=== PATIENT | female | born 1945 | race Caucasian/White ===

== ENCOUNTER → 2023-12-28 14:55 | Outpatient (REF) | payer OTHER, SELFPAY | LOC: PAVMRI 14:55 | PROVIDERS: ATTENDING PHYSICIAN Specialist; FAMILY PHYSICIAN Family Medicine | DX: M54.16 Radiculopathy, lumbar region (principal) | CPT/HCPCS: 72148 ==

== ENCOUNTER 2024-05-18 12:31 | Emergency (ER) | payer OTHER, SELFPAY ==
[2024-05-18 12:32] VITALS: BP 148/75
--- NOTE | 2024-05-18 14:07 | ED.GENMED ---
History of Present Illness
General
Chief Complaint: Fall
Source: patient
Exam Limitations: none
Time Seen by Provider: 05/18/24 13:41
Nursing documentation reviewed up to this point in time: agreed with
History of Present Illness
History of Present Illness:
Patient is a 79-year-old female who presents to the ER for evaluation. She reports that she walking her dog May 06 and fell landing on her right ribs on grass. She denies hitting her head. She is on Coumadin. She did not have a medical
evaluation after injury. She has some right rib pain however last night her pain worsened. She complains of extreme pain to the right ribs worse with movement taking a deep breath. This worsened last night when trying to remove her bra. She
denies any abdominal pain nausea vomiting. Denies any new back pain. She reports is chronic back pain. Denies any hematuria. Her INR on Thursday was 3.1.
Past History
Past History
ED Past Medical History: Arrthythmia, Fibromyalgia, GERD and HTN
ED Past Surgical History: Appendectomy, Cholecystectomy, Gynecological (Hysterectomy), Orthopedic and Other (Splenectomy)
Patient has exhibited threatening behavior?: No
PSI?: No
Social History
Tobacco: Non-smoker
Alcohol: None
Drug: None
Review of Systems
Review of Systems
Allergies reviewed?: Yes
All Other Systems: ROS reviewed and negative except as documented in HPI and ROS
Constitutional: Reports no symptoms; Denies fever, fatigue or chills
Respiratory: Reports other (right anterior rib pain ); Denies trouble breathing
Cardiac: Reports no symptoms
ABD/GI: Reports no symptoms; Denies abdominal pain, nausea or vomiting
Musculoskeletal: Reports other (chronic back pain denies new pain from fall ); Denies neck pain
Skin: Reports no symptoms
Neurological: Denies dizzy or headache
Endocrine: Reports no symptoms
Psychiatric: Reports no symptoms
Phy Exam
General Physical Exam
General Presentation: no apparent distress
General age: appears stated age
General Skin: warm and dry
General Habitus: normal
General Mental: alert
General Hydration: appears well hydrated
Eye Exam
Eye Exam: PERRL
Eye Exam General: PERRL: bilateral and EOM intact: bilateral
Pupil Exam: Bilateral: round and reactive
Cardiovascular Exam
Cardiovascular Exam: regular rate/rhythm, no murmur and normal peripheral pulses
Pulmonary Exam
Pulmonary Exam: lungs clear, no respiratory distress and other (Normal inspection to right anterior ribs tender throughout the anterior rib no crepitus ecchymosis or abrasion; no crepitus )
Gastrointestinal Exam
Gastrointestinal Exam: non tender, soft and other (no ecchymosis to abdomen non tender )
Neurological Exam
Neurological Exam: alert and oriented x3
Musculoskeletal Exam
Musculoskeletal Exam: full ROM
Skin Exam
Skin Exam: normal color and warm/dry
Psychiatric Exam
Psychiatric Exam: normal mood/affect
Course
Orders/Labs/Results
Orders:
Orders
05/18/24 12:40
Ribs, Right 3 View W/PA Chest [CR Ribs-right 3 Vw W/pa Chest*] Urgent
Comment:
Reason For Exam: pain
05/18/24 14:03
Cardiac Monitoring- Treatment ONCE
05/18/24 14:05
CT Chest With Iv Contrast Urgent
Comment:
Reason For Exam: trauma right sided rib pain
0.9% Sodium Chloride 500 ml [Nss] 500 ml IV BOLUS
05/18/24 14:42
Complete Blood Count/With Diff Urgent
Comprehensive Metabolic Panel Urgent
PT/INR [Prothrombin Time] Urgent
Abnormal Lab Results
05/18/24
14:42
WBC 11.4 H 10^3/uL
(4.8-10.8)
RBC 3.81 L 10^6/uL
(4.20-5.40)
Hct 35.2 L %
(37.0-47.0)
MCH 31.8 H pg
(27.0-31.0)
RDW 14.6 H %
(11.5-14.5)
Plt Count 661 H 10^3/uL
(130-400)
Absolute Neuts (auto) 8.9 H 10^3/uL
(1.4-6.5)
Absolute Monos (auto) 0.7 H 10^3/uL
(0.1-0.6)
Neutrophils % 78.5 H %
(42.2-75.2)
Lymphocytes % 13.0 L %
(20.5-51.1)
PT 30.0 H Sec
(11.4-14.6)
Glucose 109 H mg/dl
(70-99)
Calcium 10.4 H mg/dl
(8.4-10.2)
AST 39 H U/L
(14-36)
05/18/24 14:42
05/18/24 14:42
Vital Signs
Initial and Last Documented VS:
Initial Vital Signs
Temp Pulse Resp BP Pulse Ox
98 F 69 16 148/75 95
05/18/24 12:32 05/18/24 12:32 05/18/24 12:32 05/18/24 12:32 05/18/24 12:32
Last Documented Vital Signs
Temp Pulse Resp BP Pulse Ox
98 F 60 18 139/74 97
05/18/24 12:32 05/18/24 16:35 05/18/24 16:35 05/18/24 16:35 05/18/24 16:35
MDM/Problems Addressed
Differential Diagnosis Includes:
Not limited to rib fracture contusion
MDM/Problems Addressed:
Patient is a 79-year-old female who complains of right rib pain. She fell May 06 she is on Coumadin but denies hitting her head. Pain increased last night. X-ray did not show any acute findings however due to tenderness CAT scan was done and
does show 2 nondisplaced fractures of right sixth and seventh ribs.
White count minimally elevated however no complaints of infectious symptoms stable hemoglobin and normal kidney function.
She has no abdominal tenderness is no acute distress not hypoxic no complaints of shortness
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 Discussed deep breathing exercises.
Chronic conditions affecting care:
Chronic pain on narcotics at home on Coumadin denies any head injury was from 05/06/2024 no abdominal tenderness
*Radiology
Radiology exam reviewed: radiology read reviewed
*Pulse Oximetry
Patient hypoxic: no
*Critical Care Note
Total Time (30-74mins, 75-104mins- exclusive of procedures): Not Applicable
ED Attending Note
-
Portions of this chart may have been created with voice recognition software.� Occasional wrong word or��sound alike� substitutions may have occurred due to the inherent limitations of voice recognition software.
Discharge Plan
Departure
Patient Disposition: Home (Routine Discharge)
Date of Disposition: 05/18/24
Time of Disposition: 16:33
Patient with high blood pressure during this ER visit?: Yes
Condition: Fair
Covid-19: Not Applicable
Discharge Problem:
Fracture, rib
Instructions: Rib fractures in adults, BLOOD PRESSURE
Prescriptions:
No Action
gabapentin 300 MG capsule
600 mg PO BID
losartan 25 MG tablet
25 mg PO DAILY
warfarin [Jantoven] 5 MG tablet
5 mg PO SUTU
warfarin [Jantoven] 2.5 MG tablet
2.5 mg PO MOWETHFRSA
omeprazole 20 MG capsule,delayed release(DR/EC)
20 mg PO HS
dofetilide 500 MCG capsule
500 mcg PO Q12 Qty: 60 2RF
multivitamin 1 EACH tablet
1 ea PO DAILY
calcium citrate 200 MG tablet
200 mg PO DAILY
duloxetine 60 MG capsule,delayed release(DR/EC)
60 mg PO DAILY
metoprolol succinate [Toprol XL] 50 mg Tablet Extended Release 24 Hr
50 mg PO BID
hydrocodone-acetaminophen 10-325 mg tablet
1 tab PO Q6H PRN (Reason: moderate pain)
prednisone 2.5 mg tablet
15 mg PO DAILY
Referrals:
Justina Dolan MD [Family Provider] -
Activity Restrictions/Additional Instructions:
As discussed you have 2 nondisplaced rib fractures. You may continue to take your previously prescribed pain medication as needed. You may also use your lidocaine patches that you have at home. Practice deep breathing every hour. Follow-up with
your family doctor the next several days and return if any worsening of symptoms including increasing pain abdominal pain shortness of breath or any further concerns.
Interventions
Interventions:
*Risk Screen - Suicide Last Done: 05/18/24 12:32
ED-Musculoskeletal Assessment Last Done: 05/18/24 14:16
ED- Neurological Assessment Last Done: 05/18/24 14:16
ED-Skin Assessment Last Done: 05/18/24 14:16
Discharge Date and Time
Print Language: [place]
[2024-05-18] MEDS: NSS 500 IV (14:47)
[2024-05-18 14:58] LABS: % Basophils 0.6 % (0-2); % Eosinophils 1.3 % (0-6); % Immature Granulocytes 0.3 % (0-0.5); % Monocytes 6.3 % (1.7-9.3); % Neutrophils 78.5 % (42.2-75.2); Absolute Basophils 0.1 10^3/uL (0-0.2); Absolute Eosinophils 0.2 10^3/uL (0-0.7); Absolute Lymphocytes 1.5 10^3/uL (1.2-3.4); Absolute Monocytes 0.7 10^3/uL (0.1-0.6); Absolute Neutrophils 8.9 10^3/uL (1.4-6.5); Hematocrit 35.2 % (37.0-47.0); Hemoglobin 12.1 g/dL (12.0-16.0); Mean Corp Hgb Conc. 34.4 g/dL (33.0-37.0); Mean Corpuscular Hgb 31.8 pg (27.0-31.0); Mean Corpuscular Volume 92.4 fL (81.0-99.0); Mean Platelet Volume 8.4 fL (7.4-10.4); Nucleated Red Blood Cells % 0 %; Platelet Count 661 10^3/uL (130-400); Red Blood Cell Count 3.81 10^6/uL (4.20-5.40); Red Cell Dist. Width 14.6 % (11.5-14.5); White Blood Cell Count 11.4 10^3/uL (4.8-10.8)
[2024-05-18 15:03] LABS: INR 2.81
[2024-05-18 15:06] LABS: ALT (SGPT) 27 U/L (0-35); AST (SGOT) 39 U/L (14-36); Albumin 4.2 g/dl (3.5-5.0); Alkaline Phosphatase 108 U/L (38-126); Blood Urea Nitrogen 17 mg/dl (7-17); Calcium 10.4 mg/dl (8.4-10.2); Carbon Dioxide 29 mmol/L (22-30); Chloride 102 mmol/L (98-107); Glucose 109 mg/dl (70-99); Potassium 4.8 mmol/L (3.5-5.1); Sodium 140 mmol/L (135-145); Total Bilirubin 0.5 mg/dl (0.2-1.3); Total Protein 6.9 g/dl (6.3-8.2); eGFR > 60.00
[2024-05-18 16:35] VITALS: BP 139/74
== END 2024-05-18 17:13 | disposition home or self-care (01) ==
LOC: EMR 12:31
PROVIDERS: Nurse Practitioner; EMERGENCY PHYSICIAN Student in an Organized Health Care Education/Training Program; FAMILY PHYSICIAN Family Medicine
DX: S22.41XA Multiple fractures of ribs, right side, initial encounter for closed fracture (principal); W18.30XA Fall on same level, unspecified, initial encounter; Y93.K1 Activity, walking an animal; M54.9 Dorsalgia, unspecified; M79.7 Fibromyalgia; I10 Essential (primary) hypertension; G89.29 Other chronic pain; K21.9 Gastro-esophageal reflux disease without esophagitis; G62.9 Polyneuropathy, unspecified; G47.30 Sleep apnea, unspecified; Z79.01 Long term (current) use of anticoagulants; Z86.718 Personal history of other venous thrombosis and embolism; Z86.711 Personal history of pulmonary embolism; Z90.49 Acquired absence of other specified parts of digestive tract; Z90.81 Acquired absence of spleen
CPT/HCPCS: 99284; 71101; 71260; 80053; 85025; 85610; Q9967

== ENCOUNTER 2025-02-17 15:49 | Emergency (ER) | payer OTHER, SELFPAY ==
[2025-02-17 15:55] VITALS: BP 133/69
--- NOTE | 2025-02-17 17:38 | ED.GENMED ---
History of Present Illness
General
Chief Complaint: Fall
Time Seen by Provider: 02/17/25 17:36
History of Present Illness
History of Present Illness:
REVIEW OF OLD RECORDS
- I reviewed records, the patient was here in 2023 with a rib fracture and was admitted here in March and related to chronic pain
CHIEF COMPLAINT(S)
Fall with wrist pain and facial bruising.
HISTORY OF PRESENT ILLNESS
The patient is a 79-year-old female who presented to the emergency room after experiencing a fall. While rearranging firewood, she threw a log approximately three feet long to clear space but lost her balance, resulting in a fall face-first into a
woodpile. She reports new bruising and an abrasion around the left eye and cheek from the fall.
The patient is currently on warfarin, though she omitted her dose last night as she is scheduled for a back injection procedure within the next five to six days. A computed tomography scan of the brain was performed and showed no evidence of
intracranial bleeding. An X-ray of the wrist indicated degenerative changes, which are likely arthritic, but no definitive fractures were observed.
The patient reports pain in the wrist, making it difficult for her to perform tasks such as pulling or lifting. However, she can move her fingers without significant pain. She describes prior rib pain, attributed to a different incident involving
her dog, but this seems unrelated to today�s fall.
The patient currently uses pain medication regularly at home, taking it once or twice daily. She mentioned having pain while getting out of bed but declined additional pain relief during the ED visit.
PHYSICAL EXAM
- Nursing notes reviewed and vital signs reviewed.
- Inspection revealed bruising and abrasion over the left eye and cheek.
- Decreased active range of motion at the left wrist due to pain but no significant soft tissue swelling and no significant bony tenderness
- The elbow was non-tender with a full range of motion.
- Rib palpation was slightly painful, but this is likely related to previous trauma rather than the current fall.
- Abdomen and chest examinations did not elicit significant tenderness upon palpation.
PROBLEM LIST
Acute:
- Fall resulting in facial bruising and abrasion
- Wrist pain with possible severe sprain
Chronic:
- Degenerative joint disease (arthritis)
PLAN
- Await official radiologist interpretation of wrist X-ray.
- Apply a splint to immobilize the wrist.
- Referral to an recreation specialist, preferably at [facility], for further evaluation post-discharge.
- Resume regular medication regimen for chronic pain unless contraindicated.
- Monitor facial bruising; supportive care advised at home.
DIFFERENTIAL DIAGNOSIS
The Differential Diagnosis includes, in no particular order and is not limited to:
- Soft tissue injury of the wrist
- Wrist fracture (occult)
- Contusion
- Hematoma due to fall
- Subconjunctival hemorrhage
- Orbital fracture
- Rib contusion or fracture
- Degenerative joint disease flare-up
- Complications related to anticoagulation therapy
- Possible unobserved neurological impact from fall
RADIOLOGY
- CAT scan of the brain shows no acute abnormality
- X-ray of the wrist suspicious for nondisplaced distal left radius fracture possibly extending into the radiocarpal joint
EKG
- Not indicated
LABS
- Not indicated
UPDATE
- The patient reports decreased active range of motion of the left wrist and x-rays at least suspicious for nondisplaced distal radius fracture. She is already on chronic narcotic analgesia for chronic pain. She has seen Areli in the past�will
give contact information for Areli for follow-up.
Past History
Past History
ED Past Medical History: Arrthythmia, Fibromyalgia, GERD and HTN
ED Past Surgical History: Appendectomy, Cholecystectomy, Gynecological (Hysterectomy), Orthopedic and Other (Splenectomy)
Patient has exhibited threatening behavior?: No
PSI?: No
Social History
Tobacco: Non-smoker
Alcohol: None
Drug: None
Phy Exam
Physical Exam
Physical Exam:
See HPI
Course
Orders/Labs/Results
Orders:
Orders
02/17/25 15:51
CT Head W/o Iv Contrast Urgent
Comment:
Reason For Exam: fell and hit head on coumadin
02/17/25 16:11
Wrist, Left 3 Views CR [CR Wrist - Left Min 3 Views] Urgent
Comment:
Reason For Exam: pain after fall
Vital Signs
Initial and Last Documented VS:
Initial Vital Signs
Temp Pulse Resp BP Pulse Ox
36.4 C 68 18 133/69 100
02/17/25 15:55 02/17/25 15:55 02/17/25 15:55 02/17/25 15:55 02/17/25 15:55
Last Documented Vital Signs
Temp Pulse Resp BP Pulse Ox
36.4 C 68 18 133/69 100
02/17/25 15:55 02/17/25 15:55 02/17/25 15:55 02/17/25 15:55 02/17/25 15:55
*Pulse Oximetry
Patient hypoxic: no (100% room air-normal)
*Critical Care Note
Total Time (30-74mins, 75-104mins- exclusive of procedures): Not Applicable
ED Attending Note
-
Portions of this chart may have been created with voice recognition software.� Occasional wrong word or��sound alike� substitutions may have occurred due to the inherent limitations of voice recognition software.
Discharge Plan
Departure
Prescriptions:
No Action
gabapentin 300 MG capsule
600 mg PO BID
losartan 25 MG tablet
25 mg PO DAILY
warfarin [Jantoven] 5 MG tablet
5 mg PO SUTU
warfarin [Jantoven] 2.5 MG tablet
2.5 mg PO MOWETHFRSA
omeprazole 20 MG capsule,delayed release(DR/EC)
20 mg PO HS
dofetilide 500 MCG capsule
500 mcg PO Q12 Qty: 60 2RF
multivitamin 1 EACH tablet
1 ea PO DAILY
calcium citrate 200 MG tablet
200 mg PO DAILY
duloxetine 60 MG capsule,delayed release(DR/EC)
60 mg PO DAILY
metoprolol succinate [Toprol XL] 50 mg Tablet Extended Release 24 Hr
50 mg PO BID
hydrocodone-acetaminophen 10-325 mg tablet
1 tab PO Q6H PRN (Reason: moderate pain)
prednisone 2.5 mg tablet
15 mg PO DAILY
Referrals:
Justina Dolan MD [Family Provider, Family Practice]
Interventions
Interventions:
*Risk Screen - Suicide Last Done: 02/17/25 15:55
*General Assessment Last Done: 02/17/25 15:55
*Neglect/Abuse Screening Last Done: 02/17/25 15:55
*ED- Fall Risk Assessment Last Done: 02/17/25 15:55
*ED COVID-19 Vaccine History Last Done: 02/17/25 15:55
ED-Musculoskeletal Assessment Last Done: 02/17/25 17:35
ED- Neurological Assessment Last Done: 02/17/25 17:35
ED-Skin Assessment Last Done: 02/17/25 17:35
Discharge Date and Time
Print Language: [place]
== END 2025-02-17 18:48 | disposition home or self-care (01) ==
LOC: EMR 15:49
PROVIDERS: EMERGENCY PHYSICIAN Emergency Medicine; FAMILY PHYSICIAN Family Medicine
DX: S52.502A Unspecified fracture of the lower end of left radius, initial encounter for closed fracture (principal); S00.83XA Contusion of other part of head, initial encounter; Z79.01 Long term (current) use of anticoagulants; W19.XXXA Unspecified fall, initial encounter
CPT/HCPCS: 99285; 29125; 70450; 73110

== ENCOUNTER → 2025-05-18 14:08 | Outpatient (REF) | payer OTHER, SELFPAY | LOC: RAD 14:08 | PROVIDERS: ATTENDING PHYSICIAN Internal Medicine; FAMILY PHYSICIAN Family Medicine | DX: M81.0 Age-related osteoporosis without current pathological fracture (principal); Z51.81 Encounter for therapeutic drug level monitoring | CPT/HCPCS: 77080 ==

== ENCOUNTER → 2025-05-23 12:35 | Outpatient (REF) | payer OTHER, SELFPAY ==
[2025-05-23 13:12] LABS: INR 1.48; PT 18.2 Sec (11.4-14.6)
== END ==
LOC: REG 12:35
PROVIDERS: ATTENDING PHYSICIAN Family Medicine
DX: I48.11 Longstanding persistent atrial fibrillation (principal); D68.318 Other hemorrhagic disorder due to intrinsic circulating anticoagulants, antibodies, or inhibitors
CPT/HCPCS: 36415; 85610